=== PATIENT | male | born 1965 | race Caucasian/White ===

== ENCOUNTER 2016-10-30 11:50 | Emergency (ER) | payer BC, OTHER ==
[2016-10-30 12:21] LABS: ABSOLUTE NEUTROPHIL COUNT 3.5 K/mm3 (1.8-7.7); BASO % 0.5 % (0.2-1.0); EOS # 0.1 (0.0-0.5); HEMATOCRIT 45.1 % (32.0-52.0); HEMOGLOBIN 15.1 gm/l (14.0-18.0); IMM NEUT% 0.2 % (0-1); LYMPH # 1.6 (1.0-4.8); LYMPH % 27.4 % (15-45); MEAN CELL VOLUME 90.9 fl (80.0-94.0); MEAN CORPUSCULAR HEMOGLOBIN 30.4 pg (27.0-31.0); MEAN CORPUSCULAR HGB CONC 33.5 g/dl (33.0-37.0); MEAN PLATELET VOLUME 9.3 fl (7.4-10.4); MONO # 0.6 (0.0-0.8); MONO % 10.6 % (4-12); NEUT % 60.3 % (43-75); PLATELET COUNT 256 K/mm3 (130-400); RED CELL DISTRIBUTION WIDTH 12.7 % (11.5-14.5)
[2016-10-30] MEDS ORDERED: FAMOTIDINE 10 MG/ML 2ML VIAL ONE (12:27)
[2016-10-30] MEDS ORDERED: MAALOX/LIDO2%VISC/SIMETHICONE 40 ML BOT ONE (12:27)
[2016-10-30 12:29] LABS: ALB/GLOB RATIO 1.7 (>1.0); ALBUMIN 4.4 gm/dL (3.5-5.7); CALCIUM 9.3 mg/dL (8.6-10.3)
--- NOTE | 2016-10-30 12:34 | RAD ---
History: Left arm numbness and chest tightness for 2 weeks. Comparison: 11/26/2011. Technique: 2 views Findings: The soft tissue and bony structures are unremarkable. The heart size is appropriate. No infiltrate, effusion or pneumothorax is observed. The hilar and mediastinal structures are normal. Impression: 1. A negative 2 view chest
[2016-10-30 12:35] LABS: TROPONIN I < 0.01 ng/ml (0.0-0.06)
[2016-10-30 12:39] LABS: CKMB ISOENZYME 1.5 ng/ml (0.6-6.3)
== END 2016-10-30 13:16 | disposition home or self-care (01) ==
LOC: ED 11:50
DX: R07.81 Pleurodynia (principal); I10 Essential (primary) hypertension; K21.9 Gastro-esophageal reflux disease without esophagitis
CPT/HCPCS: 85025; 82553; 80053; 84484; 71020; 99284 ×2; 96374; 93005; A9270